=== PATIENT | female | born 1960 | race Caucasian/White ===

== ENCOUNTER → 2024-05-20 12:06 | Outpatient (REF) | payer BC, SELFPAY | LOC: HWWDC 12:06 | PROVIDERS: ATTENDING PHYSICIAN Nurse Practitioner Adult Health; FAMILY PHYSICIAN Physician Assistant | DX: Z12.31 Encounter for screening mammogram for malignant neoplasm of breast (principal) | CPT/HCPCS: 77063; 77067 ==

== ENCOUNTER 2024-12-09 21:03 | Emergency (ER) | payer BC, SELFPAY ==
[2024-12-09 21:08] VITALS: BP 128/94
--- NOTE | 2024-12-09 21:54 | ED.GENMED ---
History of Present Illness
General
Chief Complaint: Chest Pain
Source: patient and spouse
Exam Limitations: none
Time Seen by Provider: 12/09/24 21:30
Nursing documentation reviewed up to this point in time: agreed with
History of Present Illness
History of Present Illness:
64-year-old female presents with shortness of breath and chest pressure around 9 PM. After standing up from the toilet, nothing particularly painful when she was using the restroom, described as pressure in her chest and arms, no vomiting, no
diaphoresis no nausea no calf pain, no history of DVT PE, social drinker not to excess none recently non-smoker no family history of premature CAD
Past History
Past History
ED Past Medical History: None
ED Past Surgical History: Other (LEEP procedure)
Social History
Tobacco: Non-smoker
Alcohol: Occasional
Drug: None
Personal:
Living: with family
Employment: Employed
Family History
Family History: Cancer and Other; Negative Early CAD or CAD
Review of Systems
Review of Systems
All Other Systems: Not applicable
Constitutional: Denies fever
EENT: Reports no symptoms
Respiratory: Reports trouble breathing
Cardiac: Reports chest pain; Denies diaphoresis
ABD/GI: Denies abdominal pain, nausea or vomiting
: Reports no symptoms
Musculoskeletal: Reports no symptoms
Skin: Reports no symptoms
Neurological: Reports no symptoms
Endocrine: Reports no symptoms
Phy Exam
Physical Exam
Physical Exam:
Physical Exam
General: no apparent distress, not acutely ill
Neck: No jaundice
Heart: s1/s2 regular rate and rhythm, no murmur. equal radial pulses.
Lungs: no acute respiratory distress. clear bilaterally
Abdomen: Not tender
Neuro: alert and oriented. no focal neurological deficits
Skin: no rash
Psychiatric: well kept. interactive and cooperative
Extremities: no edema. no calf tenderness.
Scores
Heart Score for Chest Pain Patients
STEMI patient?: No
History: Slightly or Non-Suspicious
ECG: Normal
Age: >45 - <65 years
Risk Factors: 1 or 2 Risk Factors
Troponin: </= Normal Limit
Heart Score for Chest Pain Patients: 2
Heart Score Risk: 2.5% MACE over next 6 weeks
Course
Orders/Labs/Results
Orders:
Orders
12/09/24 21:03
EKG [Electrocardiogram (*1)] Urgent
Reason for Study: Chest Pain
12/09/24 21:04
EKG- Treatment ONCE
12/09/24 21:37
CR Chest - 2 Views Urgent
Comment:
Reason For Exam: cp sob
12/09/24 21:55
Complete Blood Count/With Diff Urgent
Comprehensive Metabolic Panel Urgent
D-Dimer Urgent
Lipase Urgent
Magnesium Urgent
NT-proBNP Urgent
Troponin I Urgent
Abnormal Lab Results
12/09/24
21:55
WBC 4.6 L 10^3/uL
(4.8-10.8)
RBC 4.04 L 10^6/uL
(4.20-5.40)
MCH 33.2 H pg
(27.0-31.0)
Chloride 109 H mmol/L
(98-107)
BUN 27 H mg/dl
(7-17)
Creatinine 1.1 H mg/dL
(0.6-1.0)
Glucose 133 H mg/dl
(70-99)
AST 50 H U/L
(14-36)
ALT 60 H U/L
(0-35)
Total Protein 6.1 L g/dl
(6.3-8.2)
12/09/24 21:55
12/09/24 21:55
Vital Signs
Initial and Last Documented VS:
Initial Vital Signs
Temp Pulse Resp BP Pulse Ox
98.2 F 94 20 128/94 97
12/09/24 21:08 12/09/24 21:08 12/09/24 21:08 12/09/24 21:08 12/09/24 21:08
Last Documented Vital Signs
Temp Pulse Resp BP Pulse Ox
98.2 F 90 13 125/85 95
12/09/24 21:08 12/09/24 23:45 12/09/24 23:45 12/09/24 23:00 12/09/24 23:45
MDM/Problems Addressed
Differential Diagnosis Includes:
ACS vasovagal orthostasis PE heart failure pneumonia pneumothorax
MDM/Problems Addressed:
Chest pain shortness of breath
*Radiology
Radiology exam reviewed: preliminary read by ED provider
*Pulse Oximetry
Patient hypoxic: no
*EKG
Interpreted by ED Provider?: Yes
Interpretation: normal
Comparison EKG: no comparison EKG present
Heart Rate: 78
Rate: normal
Rhythm: sinus
Ischemia: no ischemia
*Field Manager Interpretation
Rate: normal
Interpretation: normal
Heart Rate: 78
Rhythm: sinus
*Critical Care Note
Total Time (30-74mins, 75-104mins- exclusive of procedures): Not Applicable
Update Note
Update Note:
11:10 PM update troponin undetectable proBNP low chest x-ray noted looks negative to me full report pending D-dimer is pending
12 midnight D-dimer noted patient hungry abdomen soft and nontender
ED Attending Note
-
Portions of this chart may have been created with voice recognition software.� Occasional wrong word or��sound alike� substitutions may have occurred due to the inherent limitations of voice recognition software.
Discharge Plan
Departure
Patient Disposition: Home (Routine Discharge)
Date of Disposition: 12/09/24
Time of Disposition: 23:55
Patient with high blood pressure during this ER visit?: No
Condition: Good
Discharge Problem:
Chest pain
Instructions: Chest Pain PCP Follow Up
Prescriptions:
No Action
No Meds [No Current Medications]
0
Referrals:
Jose Ramon Dueñas MD [Family Provider] - Next open appointment
Activity Restrictions/Additional Instructions:
Return to the ER for worsening symptoms or any other concerns
Interventions
Interventions:
*General Assessment Last Done: 12/09/24 21:08
ED- Cardiac Assessment Last Done: 12/09/24 22:00
Discharge Date and Time
Print Language: NAURUAN
[2024-12-09 21:58] VITALS: BP 126/77
[2024-12-09 22:08] LABS: % Basophils 0.7 % (0-2); % Eosinophils 1.3 % (0-6); % Lymphocytes 38.6 % (20.5-51.1); % Monocytes 5.9 % (1.7-9.3); % Neutrophils 53.5 % (42.2-75.2); Absolute Eosinophils 0.1 10^3/uL (0-0.7); Absolute Lymphocytes 1.8 10^3/uL (1.2-3.4); Absolute Monocytes 0.3 10^3/uL (0.1-0.6); Absolute Neutrophils 2.5 10^3/uL (1.4-6.5); Hematocrit 38.4 % (37.0-47.0); Hemoglobin 13.4 g/dL (12.0-16.0); Mean Corp Hgb Conc. 34.9 g/dL (33.0-37.0); Mean Corpuscular Hgb 33.2 pg (27.0-31.0); Mean Platelet Volume 9.3 fL (7.4-10.4); Nucleated Red Blood Cells % 0 %; Platelet Count 287 10^3/uL (130-400); Red Blood Cell Count 4.04 10^6/uL (4.20-5.40); Red Cell Dist. Width 11.9 % (11.5-14.5); White Blood Cell Count 4.6 10^3/uL (4.8-10.8)
[2024-12-09 22:09] VITALS: BP 127/79
[2024-12-09 22:26] LABS: ALT (SGPT) 60 U/L (0-35); AST (SGOT) 50 U/L (14-36); Albumin 3.9 g/dl (3.5-5.0); Alkaline Phosphatase 94 U/L (38-126); Blood Urea Nitrogen 27 mg/dl (7-17); Calcium 9.7 mg/dl (8.4-10.2); Carbon Dioxide 26 mmol/L (22-30); Chloride 109 mmol/L (98-107); Glucose 133 mg/dl (70-99); Lipase 124 U/L (23-300); Magnesium 1.9 mg/dl (1.6-2.3); Potassium 4.2 mmol/L (3.5-5.1); Sodium 142 mmol/L (135-145); Total Bilirubin 0.4 mg/dl (0.2-1.3); Total Protein 6.1 g/dl (6.3-8.2); eGFR 56.46
[2024-12-09 22:35] LABS: NT-proBNP < 20.0 pg/ml; Troponin I < 0.012 ng/ml
[2024-12-09 23:00] VITALS: BP 125/85
[2024-12-09 23:15] LABS: D-Dimer < 0.27 ug/mlFEU (0.00-0.50)
== END 2024-12-10 00:06 | disposition home or self-care (01) ==
LOC: EMR 21:03
PROVIDERS: EMERGENCY PHYSICIAN Emergency Medicine; FAMILY PHYSICIAN Family Medicine
DX: R07.89 Other chest pain (principal)
CPT/HCPCS: 99283; 71046; 80053; 83690; 83735; 83880; 84484; 85025; 85379; 93005